=== PATIENT | male | born 1960 | race Caucasian/White ===

== ENCOUNTER 2016-06-09 23:22 | Emergency (ER) | payer OTHER ==
[2016-06-09] MEDS ORDERED: 0.9% Sodium Chloride 1,000 ML IV ONE (23:43)
--- NOTE | 2016-06-09 23:43 | ED.REPORT ---
HPI-General Illness Date of Service Jun 09, 2016 ED Provider: Kyle Monaco MD Patient is a 55 year old male with a history of hypertension, hyperlipidemia, and known influenza who presents to the ED via EMS with flu-like symptoms that have been ongoing for the past 3 weeks, worse in the past 2-3 days. The patient was seen in the clinic 10 days ago and diagnosed with influenza. He was started on Tamiflu, which he finished the course of, and felt improved for several days. However, he then developed increased cough, shortness of breath, fatigue, and intermittent fever. He denies vomiting or chest pain. Nursing Notes Stated Complaint: FLU SYMPTOMS Nursing Notes Reviewed: Yes Allergies: Uncoded Allergies: PENICILLIN (Allergy, Unknown, 06/09/16) Scheduled Prednisone (PredniSONE) 20 Mg Tablet 60 MG PO DAILY General Time Seen by MD: 23:42 Chief Complaint Cough, Flu-like illness Hx Obtained From: Patient Arrived By: Ambulance Sudden in Onset?: No Onset Occurred: More than a week ago... (3 weeks, worse for the past few days) Severity: Current: No pain currently Severity: Maximum: No pain Recent Healthcare: Recent doctor visit Similar Sx Previous: Yes Past Medical History Past Medical History Reports: Hyperlipidemia, Hypertension Reports: Depression Past Surgical History arthoscopic knee surgery Reports: Tonsillectomy Smoking History Unknown if Ever Smoker Social History Alcohol Use: 1-3 per day Other Social History: Local resident Ambulatory Status Independent Review of Systems Full Review of Systems Constitutional: Reports: Fatigue, Fever (intermittent) Respiratory: Reports: Non-productive cough, Shortness of breath Cardiovascular: Denies: Chest pain GI: Denies: Vomiting Complete sys rev & neg: except as marked. Physical Exam Vital Signs Vital Signs Date Time Temp Pulse Resp B/P Pulse Ox O2 Delivery O2 Flow Rate FiO2 06/10/16 05:12 84 16 96 Room Air 06/10/16 05:06 37 80 16 127/79 95 Room Air 06/10/16 02:00 37.2 80 18 113/80 95 Room Air 06/10/16 00:08 83 18 97 Room Air 06/09/16 23:46 37.2 74 16 118/83 97 Room Air Initial VS: Reviewed Head / Eyes: Atraumatic, Normocephalic, PERRL Neck: Supple, Full range of motion Abdomen / GI: Soft, Non-tender, No distention Extremities: Vascular intact, Neuro intact Skin: Warm, Dry, No cyanosis Neurologic: Alert, Oriented, Nonfocal Psychiatric: Mood/affect normal, Behavior normal, Normal thought content General/Constitutional: Awake, Alert dry appearing, flushed ENT: Airway patent Mouth: Positive: Mucous membranes dry Respiratory / Chest: No rales, No rhonchi Resp Distress / Stridor: Positive: Speaks words only (4-5 in a row) bronchiospastic cough, turns purple with cough wheezing bilaterally Cardiovascular: Heart rate NL, Regular rhythm, Heart sounds NL Interpretation & Diagnostics Lab Results Interpretation Result Diagram: 06/09/16 2343 06/09/16 2343 Test 06/09/16 23:43 06/10/16 00:30 White Blood Count 6.9th/mm3 (3.8-10.1) Red Blood Count 4.32mil/mm3 (4.40-5.80) Hemoglobin 14.0g/dL (13.8-17.2) Hematocrit 40.0% (41.0-50.0) Mean Corpuscular Volume 92.6fL (81-100) Mean Corpuscular Hemoglobin 32.4pg (27.0-35.0) Mean Corpuscular Hemoglobin Concent 35.0% (32.0-37.0) Red Cell Distribution Width 12.0% (12.3-15.4) Platelet Count 260bil/L (150-400) Neutrophils (%) (Auto) 65.5% (40-74) Lymphocytes (%) (Auto) 23.1% (14-46) Monocytes (%) (Auto) 9.8% (4-12) Eosinophils (%) (Auto) 1.0% (0-5) Basophils (%) (Auto) 0.3% (0-3) Prothrombin Time 10.2sec (8.1-12.5) Prothromb Time International Ratio 0.95ratio Activated Partial Thromboplast Time 28.5sec (22.8-33.0) Sodium Level 137mEq/L (134-144) Potassium Level 4.0mEq/L (3.5-5.2) Chloride Level 97mEq/L (97-108) Carbon Dioxide Level 26mmol/L (18-29) Blood Urea Nitrogen 7mg/dL (6-24) Creatinine 0.86mg/dL (0.76-1.27) Estimat Glomerular Filtration Rate 97mL/min (>59) Glucose Level 103mg/dL (60-99) Calcium Level 9.6mg/dL (8.5-10.1) Magnesium Level 2.0mg/dL (1.6-2.6) Total Bilirubin 0.6mg/dL (0.0-1.2) Aspartate Amino Transf (AST/SGOT) 56U/L (0-50) Alanine Aminotransferase (ALT/SGPT) 45U/L (0-44) Alkaline Phosphatase 86U/L (25-150) Troponin T 0.010ug/L (0.0-0.011) Pro-B-Type Natriuretic Peptide 281.8pg/mL (0-210) Total Protein 8.0g/dL (6.4-8.4) Albumin 4.1g/dL (3.4-5.0) Hold Red Top Tube Received (Received) Hold Herman Top Tube Received (Received) ECG Interpretation ECG Interpretation: Sinus Rhythm, Rate 90 Inferior infarct, old Diffuse ST segment and T wave flattening Time: 00:44 Interpreted by: ED physician X-Ray Chest Interpretation Chest Xray Interpretation: Impression: No acute process. View: AP & lat Interpretation / Wet Read by: Wet read ED physician Re-Eval/Medical Decision Med Decision/Clinical Course 55-year-old with a recent documented influenza infection, presents now with overt bronchospasm after a period of improvement, followed by some recurrence of his breathing difficulty. He is much improved after nebulizers here. X-rays negative for infiltrate. He is begun with IV Decadron here and by mouth prednisone to follow, ongoing albuterol, and follow up with PCP. Source of Hx: Old records Time of Eval: 03:35 Patient Status: Condition improved Re-Evaluation/Progress Note: Rechecked the patient is discuss the results of his EKG, chest x-ray, and lab. Patient feels improved but not well enough to return home. Will watch the patient in the ED for several hours and re-evaluate. Time of Eval: 05:11 Patient Status: Condition improved Re-Evaluation/Progress Note: Patient will receive breathing treatment prior to discharge home. Patient understands and agrees with the plan to be discharged home. Discharge instructions and follow-up discussed. All questions were addressed. Return to the ED warnings given. Counseled Regarding: Diagnosis, Lab results, Need for follow-up, When/why to return to ED Discharge & Departure Primary Impression: Reactive airway disease that is not asthma Additional Impression: Influenza due to influenza A virus Disposition: Home Discharge Condition All VS Reviewed: Yes Condition: Stable Patient Instructions: Reactive Airways Disease (ED) Additional Instructions: Albuterol every three hours as needed. Prednisone three tablets daily for seven days. Follow up with your doctor in the office. Return if any immediate issues with breathing. Referrals: Lexy Hensley PA-C (PCP) Scribe Attestation Portions of this note were transcribed by Kierra Paige. I, Dr. Monaco personally performed the history, physical exam and medical decision-making; I reviewed and confirmed the accuracy of the information in the transcribed note. Signed by: Silvio Minaya, 06/10/2016 0513 copies to: Lexy Hensley PA-C, Christopher W MD Jun 09, 2016 23:43 Kierra Paige Jun 09, 2016 23:50
[2016-06-09] MEDS ORDERED: Albuterol 2.5 mg/3 mL Inhalation Solution NEB ONE (23:45)
[2016-06-09] MEDS ORDERED: Albuterol-Ipratropium 3 mL Inhalation Solution NEB ONE (23:45)
[2016-06-09 23:46] VITALS: BP 118/83; PULSE 74; RESP 16; O2SAT 97
[2016-06-10 00:08] VITALS: PULSE 83; RESP 18; O2SAT 97
[2016-06-10 00:23] LABS: BASOPHILS % (AUTO) 0.3 % (0-3); MONOCYTES % (AUTO) 9.8 % (4-12); Mean Corpuscular Hemoglobin 32.4 pg (27.0-35.0); Mean Corpuscular Volume 92.6 fL (81-100); NEUTROPHILS % (AUTO) 65.5 % (40-74); Platelet Count 260 bil/L (150-400)
[2016-06-10 00:45] LABS: INR 0.95 ratio
[2016-06-10 00:49] LABS: TROPONIN T 0.01 ug/L (0.0-0.011)
[2016-06-10] MEDS ORDERED: Dexamethasone Inj 10 MG in 0.9% Sodium Chloride-Pha MIX 50 ML IV ONE (00:55)
[2016-06-10 02:00] VITALS: BP 113/80; PULSE 80; RESP 18; O2SAT 95
[2016-06-10] MEDS ORDERED: Albuterol-Ipratropium 3 mL Inhalation Solution NEB ONE (04:15)
[2016-06-10] MEDS ORDERED: _Albuterol-HFA 60 Puff Inhaler INHALATION PRN (05:05)
[2016-06-10] MEDS ORDERED: predniSONE 20 mg Tablet PO ONE (05:05)
[2016-06-10 05:06] VITALS: BP 127/79; PULSE 80; RESP 16; O2SAT 95
[2016-06-10] MEDS ORDERED: PRE20 PO (05:07)
[2016-06-10 05:12] VITALS: PULSE 84; RESP 16; O2SAT 96
--- NOTE | 2016-06-10 09:31 | DRSVH ---
PROCEDURE: X-RAY CHEST, TWO VIEWS ([id number]) INDICATIONS: coough, SHORT OF BREATH TECHNIQUE: 2 views of the chest were acquired. COMPARISON: [facility], , CHEST 2VW, 05/04/2012, 16:09. FINDINGS: Surgical changes and devices: None. Lungs and pleura: No pleural effusions or pneumothorax. Lungs are clear. Mediastinum: Mediastinal contours are normal. Heart size is normal. Left hilar calcifications are demonstrated. Bones and chest wall: No suspicious bony abnormalities. Soft tissues appear unremarkable. IMPRESSION: No acute cardiopulmonary disease. Dictated by: Zak Ortiz Nanci Interpreted: Nat Scruggs MD on 06/10/2016 at 9:30 Transcribed by: WINIFRED on 06/10/2016 at 9:30 Approved by: Nat Scruggs M.D. on 06/10/2016 at 16:11
== END 2016-06-10 05:06 | disposition home or self-care (01) ==
LOC: EDBD 23:22 → EDUNIT# 23:22 → SED 23:22
DX: J10.89 Influenza due to other identified influenza virus with other manifestations (principal); I10 Essential (primary) hypertension; E78.5 Hyperlipidemia, unspecified; Z88.0 Allergy status to penicillin
CPT/HCPCS: 36415; 71020; 80053; 82308; 83735; 83880; 84484; 85025; 85610; 85730; 87040; 93005; 94640; 96361; 96374; 99285; J1100; J7030; J7613; J7620